=== PATIENT | female | born 1980 | race Caucasian/White ===

== ENCOUNTER 2020-03-06 14:21 | Emergency (ER) | payer MEDICAID, SELFPAY ==
[2020-03-06 14:29] VITALS: BMI 27.2
[2020-03-06 14:33] VITALS: BP 139/80; PULSE 74; RESP 16; TEMP 36.3; O2SAT 99
--- NOTE | 2020-03-06 15:12 | ED_ITS ---
HPI - Nausea/Vomiting/Diarrhea General: Chief complaint: Nausea/Vomiting/Diarrhea Stated complaint: subutex withrdawal Time Seen by Provider: 03/06/20 15:12 Source: patient Mode of arrival: ambulatory Limitations: no limitations History of Present Illness: HPI Narrative: Patient comes in today for complaints of withdrawal symptoms due to being out of her Subutex for 3 days. Patient appears well. Patient appears in no pain. Patient reports also been without her clonazepam. Patient has been using Phenergan as needed for nausea and vomiting. Associated nausea: Yes Associated symtoms: Reports nausea Review of Systems General: Reports: 10 or more systems reviewed and unremarkable except in HPI and below GI: Reports: nausea and vomiting FORMERLY [facility], [facility]–1983 ED PFSH: Social History (Updated 03/06/20 @ 13:45 by Edith Lawrence LPN) Smoking and tobacco status: current every day smoker Alcohol intake: never Physical Exam Const: COMMON NORMALS: no acute distress and patient oriented x3 GENERAL APPEARANCE: cooperative HENMT: COMMON NORMALS: normocephalic and Normal external nose present HEAD & SCALP: normal to inspection and normocephalic NOSE: Normal external nose present Eye: GENERAL EYE: appearance normal, both eyes and all related structures Neck/C-Spine: COMMON NORMALS: full ROM Chest: COMMONS NORMALS: normal inspection of the chest Resp: COMMON NORMALS: normal respiratory effort EFFORT & INSPECTION: Yes able to speak in complete sentences Cardio: COMMON NORMALS: regular rate and regular rhythm RATE: regular rate RHYTHM: regular rhythm GI: COMMON NORMALS: non-tender : COMMON NORMALS: Yes no CVA tenderness BLADDER/KIDNEY EXAM: Yes no CVA tenderness Back/Pelvis: COMMON NORMALS: no CVA tenderness and thoracic and lumbar spine normal to inspection Extremity: COMMON NORMALS: normal to inspection Neuro: COMMON NORMALS: patient oriented x3 and moves all extremities Psych: COMMON NORMALS: mental status grossly normal and cooperative Skin: COMMON NORMALS: no rashes or lesions noted GENERAL SKIN EXAM: no rashes or lesions noted Course Vital Signs: Vital signs: Vital Signs Temperature 97.4 F L 03/06/20 14:33 Pulse Rate 74 03/06/20 14:33 Respiratory Rate 16 03/06/20 14:33 Blood Pressure 116/76 03/06/20 15:26 Pulse Oximetry 99 03/06/20 14:33 MDM - Nausea/Vomiting/Diarrhea MDM Narrative: Medical decision making narrative: Patient came into the ER today due to being without her medications for narcotic abuse. Patient appears well. Patient appears in no acute distress. Differential diagnosis includes but not limited to substance abuse, malingering, narcotic withdrawal, drug- seeking behavior. Patient was given a dose of Phenergan IM and a dose of clonidine. Patient was recommended to continue with the clonidine for withdrawal symptoms. Patient was recommended to talk with [facility] for other providers that may be assisted in her narcotic abuse program. Discharge Plan Discharge Patient Disposition: Home, Self-Care Clinical Impression: Drug withdrawal Qualifiers: Substance type: opioid Qualified Code(s): F11.23 - Opioid dependence with withdrawal Vomiting Qualifiers: Vomiting type: unspecified Vomiting Intractability: non-intractable Nausea presence: with nausea Qualified Code(s): R11.2 - Nausea with vomiting, unspecified Condition: Stable Prescriptions: New ondansetron HCl 4 mg tablet 4 mg PO Q8H PRN (Reason: nausea and vomiting) Qty: 10 RF: 0 clonidine HCl 0.1 mg tablet 0.1 mg PO TID Qty: 30 RF: 0 No Action Klonopin 0.5 mg Tablet 0.5 mg PO Q8H PRN (Reason: unknown) RF: 0 promethazine 25 mg Tablet 25 mg PO PRN RF: 0 buprenorphine HCl 8 mg Tablet, Sublingual 12 mg SUBLINGUAL DAILY RF: 0 Discharge Orders: Discharge Order (Routine); Ordered 03/06/20 Ordered By: Arturo Rodríguez Discharge Diet: Advance as tolerated Discharge Activity: Resume usual activity Patient Instructions: Opioid Withdrawal (ED) Activity Restrictions/Additional Instructions: Drink plenty of water. Use medications as directed only. Follow-up with primary care for further treatment. You may need to contact [facility], an area rehab center, for further treatment programs that may be of assistance with locating a provider for your Subutex. Return to the ER for high fever or new concerns. Coding Level of Care Code ED Obstetrics Technician for Aba Raman Exam Comprehensive
[2020-03-06 15:26] VITALS: BP 116/76
[2020-03-06] MEDS: cloNIDine 0.1 mg Tablet PO (15:26)
[2020-03-06] MEDS: promethazine 25 mg/mL SDV 1 mL IM (15:36)
== END 2020-03-06 16:00 | disposition home or self-care (01) ==
PROVIDERS: Emergency Provider Nurse Practitioner Family
DX: F11.23 Opioid dependence with withdrawal (principal); R11.2 Nausea with vomiting, unspecified; F17.210 Nicotine dependence, cigarettes, uncomplicated
CPT/HCPCS: 12345; 96372; 99282; 99283; J2550

== ENCOUNTER 2020-03-18 02:25 | Inpatient (IN) | payer OTHER, SELFPAY ==
[2020-03-18] VITALS (84 sets, daily range): BP systolic 89–141; BP diastolic 62–95; PULSE 63–135; RESP 10–27; TEMP 36.5–36.9; O2SAT 93–100; BMI 26.6
--- NOTE | 2020-03-18 02:33 | XR_ITS ---
WS: [id number] XR chest 1V portable [id number] REASON FOR EXAM: ams FINDINGS: Interstitial reaction is noted in both lung veloz suggesting early pulmonary edema. The heart is not enlarged. There is no pneumonia pleural effusion are pneumothorax. There is excessive gas in the intestinal tract a pattern is not noted. XR/XR chest 1V portable [id number] IMPRESSION: Interstitial reaction both lung veloz suggesting early pulmonary edema.
--- NOTE | 2020-03-18 02:33 | CTR_ITS ---
PROCEDURE INFORMATION: Exam: CT Head Without Contrast Exam date and time: 03/18/2020 2:36 AM Age: 40 years old Clinical indication: Injury or trauma; Injury history: Found unconscious/possible overdose; Initial encounter; Additional info: AMS TECHNIQUE: Imaging protocol: Computed tomography of the head without contrast. Radiation optimization: All CT scans at this facility use at least one of these dose optimization techniques: automated exposure control; mA and/or kV adjustment per patient size (includes targeted exams where dose is matched to clinical indication); or iterative reconstruction. COMPARISON: No relevant prior studies available. RADIATION DOSE METRICS: Total DLP: 899.21 mGy-cm FINDINGS: Brain: No acute intracranial hemorrhage or mass effect. No definite acute infarct by CT. MRI could be more sensitive/specific for detection, as clinically directed. Ventricles: Ventricle size is normal for age. Bones/joints: No definite acute skull fracture. Sinuses: Moderate mucosal thickening/fluid in the right maxillary sinus. Mild ethmoid sinus opacity. Minimal mucosal thickening/fluid in the sphenoid sinus. Mastoid air cells: No significant acute finding. CT/CT head wo con* [id number] IMPRESSION: 1. No acute intracranial hemorrhage or mass effect. 2. No definite acute infarct by CT, see above. 3. Other findings discussed above. 4. Some limitations due to artifact from patient motion. Radiation Dose CTDIVOL = (mGy): DLP = 899.21 (mGy-cm)
--- NOTE | 2020-03-18 02:33 | ECG_ITS ---
Measurements Intervals [place] Rate: 81 P: 66 MS: 157 QRS: 67 QRSD: 102 T: 39 QT: 413 QTc: 480 SINUS RHYTHM WITH SINUS ARRHYTHMIA INCOMPLETE RIGHT BUNDLE BRANCH BLOCK [90+ ms QRS DURATION, TERMINAL R IN V1/V2, 40 40+ ms S IN I/aVL/V4/V5/V6] No previous ECG available for comparison Electronically Signed On 03-18-2020 20:29:25 CDT by Dani Ba M.D. [email or web address]
--- NOTE | 2020-03-18 02:36 | W.ED.AMS ---
HPI - Altered Mental Status General: Chief Complaint: Altered Mental Status Stated Complaint: unresponsive Time Seen by Provider: 03/18/20 02:33 History of Present Illness: HPI narrative: 40-year-old female presents obtunded, presumably following an ingestion. Her found her leaned up against a wall. She had told him to take care of the kids , so he is assuming that she overdosed on something. She is not answering questions, except to answer simple questions such as nothing hurts, and that I do not do drugs . Her blood sugar was 136 in the field. She did not respond to Narcan. complaint: altered mental status and decreased responsiveness Onset (ago): minute(s) Timing confirmed by: spouse Severity: severe Associated symptoms: Reports other (Unknown intent) Review of Systems General: Reports: ROS unobtainable due to mental status PFS ED PFSH: Medical History (Updated 03/18/20 @ 04:22 by Jeannette Goldstein MD) Depression Hypertension Insomnia Opioid dependence PTSD (post-traumatic stress disorder) Surgical History (Updated 03/18/20 @ 04:22 by Jeannette Goldstein MD) History of hysterectomy Social History (Updated 03/18/20 @ 04:22 by Jeannette Goldstein MD) Smoking and tobacco status: current every day smoker Alcohol intake: never Physical Exam Const: GENERAL APPEARANCE: well kempt and odor of alcohol detected ORIENTATION/CONSCIOUSNESS: Yes oriented to person; not oriented to place and not oriented to time HENMT: COMMON NORMALS: normocephalic, external ears normal and Normal external nose present HEAD & SCALP: normocephalic FACE & SINUS: normal facial exam NOSE: Normal external nose present and No nasal discharge present EXTERNAL EAR: Yes external ears normal MOUTH: tongue normal Eye: COMMON NORMALS: Equal, round and reactive pupils present (Pupils small but reactive), EOMs intact bilaterally and conjunctivae normal EYELID: eyelids normal CONJUNCTIVA: Yes conjunctivae normal PUPIL: Yes Equal, round and reactive pupils present (Pupils small but reactive) Neck/C-Spine: GENERAL: No tracheal deviation Chest: COMMONS NORMALS: normal inspection of the chest CHEST: No tenderness Resp: COMMON NORMALS: clear to auscultation bilaterally EFFORT & INSPECTION: No tachypneic, No respiratory distress, No retractions, No uses accessory muscles and No tracheal deviation AUSCULTATION: clear to auscultation bilaterally, no rhonchi, no wheezes and lung sounds not diminished Cardio: COMMON NORMALS: regular rate and regular rhythm RATE: regular rate RHYTHM: regular rhythm HEART SOUNDS: no murmurs PERIPHERAL PULSES: radial pulses present GI: INSPECTION: No abdominal distension AUSCULTATION: No Hyperactive bowel sounds present and No Hypoactive bowel sounds present PALPATION: No Guarding due to palpation present (GI) and No Rigid due to palpation PERCUSSION: no dullness to percussion and no tympanic to percussion Neuro: AMY COMA SCALE: document GCS findings Avis coma scale eye opening: To pressure Avis coma scale verbal response: Confused Avis coma scale motor response: Localising Amy coma scale total score: 11 SENSORIUM/ORIENTATION: Yes oriented to person, No oriented to place and No oriented to time Psych: APPEARANCE: Yes well kempt ATTITUDE: Yes calm SPEECH: Yes minimal and Yes slurred ATTENTION/CONCENTRATION: Yes attention grossly impaired Skin: COMMON NORMALS: no rashes or lesions noted GENERAL SKIN EXAM: no rashes or lesions noted Course Consultations: Consultation #1: ismael Vital Signs: Vital signs: Vital Signs Temperature 97.9 F 03/18/20 02:26 Pulse Rate 77 03/18/20 03:02 Respiratory Rate 14 03/18/20 03:02 Blood Pressure 124/94 03/18/20 03:02 Pulse Oximetry 93 03/18/20 03:02 MDM - Altered Mental Status MDM Narrative: Medical decision making narrative: 40-year-old female, presents obtunded. She does respond to noxious stimuli, as well as strong verbal stimuli. She vocalizes and answers simple questions somewhat appropriately. Her GCS is 10/11. Her laboratory is benign. Her head CT is negative. Cervical spine is cleared radiographically. Her chest x-ray is negative. Her vitals are good. Blood pressure 120/71, sinus at 76, room air saturation is 99%. This is likely an intentional overdose of unknown substances, most likely benzodiazepines given her prescribed medication. Narcan did not resolve her obtundation in the field. The patient is prescribed Suboxone, which would take very large doses to reverse of Narcan. Romazicon could be considered, but if the patient takes medication chronically, she could seize. She will be observed in the ICU. Lab Data: Labs: Lab Results 03/18/20 03/18/20 03/18/20 Range/Units 02:37 02:37 02:37 WBC 7.0 (4.0-10.0) 10^3/ uL RBC 4.61 (4.1-5.3) 10^6/u L Hgb 12.4 (11.5-15.3) g/dL Hct 39.4 (37.0-47.0) % MCV 85.5 (81-99) fL MCH 26.9 L (28.0-34.0) pg MCHC 31.5 (30.0-36.0) g/dL RDW 13.4 (12.1-15.1) % Plt Count 309 (130-400) 10^3/c mm MPV 9.3 (7.4-10.4) fL Neut % (Auto) 88.9 % Lymph % (Auto) 9.0 % Frontier % (Auto) 1.4 % Eos % (Auto) 0.0 % Baso % (Auto) 0.4 % Neut # (Auto) 6.2 (1.8-7.7) 10^3/u L Lymph # (Auto) 0.6 L (0.8-4.8) 10^3/u L Frontier # (Auto) 0.1 L (0.2-0.9) 10^3/u L Eos # (Auto) 0.0 (0.0-0.8) 10^3/u L Baso # (Auto) 0.0 (0.0-0.1) 10^3/u L Nucleated RBC % (a uto) 0 % Nucleated RBCs # 0.0 /100WBC PT 13.90 H (10.5-13.3) SECO NDS INR 1.04 (0.8-1.2) Specimen Type Sample Site ABG pH (7.35-7.45) ABG pCO2 (35-45) mmHg ABG pO2 (80.0-100.0) mmH g ABG HCO3 (22-26) mmol/L ABG Base Excess (-2.0-2.0) mmol/ L Claudio Test Hematocrit (37-47) % O2 Delivery Device Deputy Commonwealth'S Attorney ID Sodium 136 (136-145) mmol/L Potassium 3.7 (3.5-5.1) mmol/L Chloride 98 (98-107) mmol/L Carbon Dioxide 24 (22-29) mmol/L Anion Gap 17.7 (5-19) BUN 10 (6-20) mg/dL Creatinine 0.8 (0.5-0.9) mg/dL GFR Calculation 79.0 L (90-130) mL/min Glucose 132 H (65-115) mg/dL Calculated Osmolal ity 280 L (285-295) mOsm/k g Calcium 9.4 (8.5-10.5) mg/dL Total Bilirubin 0.4 (0.15-1.2) mg/dL AST 33 H (0-32) U/L ALT 43 H (0-33) U/L Alkaline Phosphata se 66 (35-105) IU/L Ammonia (11-51) umol/L Creatine Kinase 546 H* (26-192) U/L Total Protein 7.5 (6.6-8.7) g/dL Albumin 4.6 (3.5-5.2) g/dL Globulin 2.9 (1.3-4.6) g/dL HCG, Qual (Negative) Salicylates 0.5 L (3-10) mg/dL Acetaminophen < 5.0 L (10-30) ug/mL Ethyl Alcohol < 10 (0-10) mg/dL 03/18/20 03/18/20 03/18/20 Range/Units 02:37 02:37 02:55 WBC (4.0-10.0) 10^3/ uL RBC (4.1-5.3) 10^6/u L Hgb (11.5-15.3) g/dL Hct (37.0-47.0) % MCV (81-99) fL MCH (28.0-34.0) pg MCHC (30.0-36.0) g/dL RDW (12.1-15.1) % Plt Count (130-400) 10^3/c mm MPV (7.4-10.4) fL Neut % (Auto) % Lymph % (Auto) % Frontier % (Auto) % Eos % (Auto) % Baso % (Auto) % Neut # (Auto) (1.8-7.7) 10^3/u L Lymph # (Auto) (0.8-4.8) 10^3/u L Frontier # (Auto) (0.2-0.9) 10^3/u L Eos # (Auto) (0.0-0.8) 10^3/u L Baso # (Auto) (0.0-0.1) 10^3/u L Nucleated RBC % (a uto) % Nucleated RBCs # /100WBC PT (10.5-13.3) SECO NDS INR (0.8-1.2) Specimen Type Arterial Sample Site Radial, right ABG pH 7.33 L (7.35-7.45) ABG pCO2 42.4 (35-45) mmHg ABG pO2 60.7 L (80.0-100.0) mmH g ABG HCO3 22.5 (22-26) mmol/L ABG Base Excess -3.3 L (-2.0-2.0) mmol/ L Claudio Test Pos Hematocrit 37.1 (37-47) % O2 Delivery Device None Deputy Commonwealth'S Attorney ID ellpe Sodium (136-145) mmol/L Potassium (3.5-5.1) mmol/L Chloride (98-107) mmol/L Carbon Dioxide (22-29) mmol/L Anion Gap (5-19) BUN (6-20) mg/dL Creatinine (0.5-0.9) mg/dL GFR Calculation (90-130) mL/min Glucose (65-115) mg/dL Calculated Osmolal ity (285-295) mOsm/k g Calcium (8.5-10.5) mg/dL Total Bilirubin (0.15-1.2) mg/dL AST (0-32) U/L ALT (0-33) U/L Alkaline Phosphata se (35-105) IU/L Ammonia 10 L (11-51) umol/L Creatine Kinase (26-192) U/L Total Protein (6.6-8.7) g/dL Albumin (3.5-5.2) g/dL Globulin (1.3-4.6) g/dL HCG, Qual Negative (Negative) Salicylates (3-10) mg/dL Acetaminophen (10-30) ug/mL Ethyl Alcohol (0-10) mg/dL Discharge Plan Discharge Prescriptions: No Action Klonopin 0.5 mg Tablet 0.5 mg PO Q8H PRN (Reason: unknown) RF: 0 promethazine 25 mg Tablet 25 mg PO PRN RF: 0 buprenorphine HCl 8 mg Tablet, Sublingual 12 mg SUBLINGUAL DAILY RF: 0 ondansetron HCl 4 mg tablet 4 mg PO Q8H PRN (Reason: nausea and vomiting) Qty: 10 RF: 0 clonidine HCl 0.1 mg tablet 0.1 mg PO TID Qty: 30 RF: 0 Coding Level of Care Code ED Staff Writer for Chg Fwd Exam Comprehensive
--- NOTE | 2020-03-18 02:40 | CTR_ITS ---
PROCEDURE INFORMATION: Exam: CT Cervical Spine Without Contrast Exam date and time: 03/18/2020 2:42 AM Age: 40 years old Clinical indication: Injury or trauma; Injury history: Found unconscious/possible overdose; Initial encounter; Additional info: AMS TECHNIQUE: Imaging protocol: Computed tomography images of the cervical spine without contrast. Radiation optimization: All CT scans at this facility use at least one of these dose optimization techniques: automated exposure control; mA and/or kV adjustment per patient size (includes targeted exams where dose is matched to clinical indication); or iterative reconstruction. COMPARISON: No relevant prior studies available. RADIATION DOSE METRICS: Total DLP: 799.9 mGy-cm FINDINGS: Vertebrae: On axial CT images, no definite acute fracture is visible. Sagittal and coronal reconstructions show no fracture or subluxation. Mild to moderate degenerative disc changes and facet joint arthritis at several levels. Discs/Spinal canal/Neural foramina: Moderate bulging/protruding disc at C5-C6, more prominent to the left of the midline. MRI could be more specific/sensitive if clinically indicated. Lungs: No significant acute abnormality in the upper lungs. CT/CT cervical spin wo con* [id number] IMPRESSION: 1. No definite acute fracture or subluxation by CT. 2. Other findings discussed above. Radiation Dose CTDIVOL = (mGy): DLP = 799.9 (mGy-cm)
[2020-03-18 02:43] LABS: Basophils % 0.4 %; Hematocrit 39.4 % (37.0-47.0); Hemoglobin 12.4 g/dL (11.5-15.3); Lymphocytes # 0.6 10^3/uL (0.8-4.8); Mean Corpuscular HGB Conc 31.5 g/dL (30.0-36.0); Mean Corpuscular Hemoglobin 26.9 pg (28.0-34.0); Mean Corpuscular Volume 85.5 fL (81-99); Mean Platelet Volume 9.3 fL (7.4-10.4); Monocytes # 0.1 10^3/uL (0.2-0.9); Monocytes % 1.4 %; Neutrophils # 6.2 10^3/uL (1.8-7.7); Neutrophils % 88.9 %; Nucleated Red Blood Cells % 0 %; Platelet Count 309 10^3/cmm (130-400); Red Blood Count 4.61 10^6/uL (4.1-5.3); Red Cell Distribution Width 13.4 % (12.1-15.1)
[2020-03-18] MEDS: sodium chloride 0.9% 1,000 ML 999 ML IV (02:45)
[2020-03-18 02:53] LABS: INR 1.04 (0.8-1.2)
--- NOTE | 2020-03-18 02:58 | PC.NURSE ---
Received patient to Er via EMS with complaint of unreponsive at home. Patient was found at the bottom of stairs by her spouse. Patient has a 20g sl Lac per ems and received 0.4 nacan in ambulance with slight improvement to her resp. Patient is lethargic but arrouse to painful stimuli. Patient able to maintain her airway with good sats. Placed on monitor, pulseox and lab draw obtained. in room.
[2020-03-18 03:00] LABS: Ammonia 10 umol/L (11-51)
[2020-03-18 03:01] LABS: Alanine Aminotransferase 43 U/L (0-33); Albumin Level 4.6 g/dL (3.5-5.2); Alkaline Phosphatase 66 IU/L (35-105); Anion Gap 17.7 (5-19); Aspartate Amino Transferase 33 U/L (0-32); Blood Urea Nitrogen 10 mg/dL (6-20); Calcium 9.4 mg/dL (8.5-10.5); Carbon Dioxide 24 mmol/L (22-29); Chloride 98 mmol/L (98-107); Globulin 2.9 g/dL (1.3-4.6); Glucose 132 mg/dL (65-115); Osmolality Calculated 280 mOsm/kg (285-295); Potassium 3.7 mmol/L (3.5-5.1); Salicylate 0.5 mg/dL (3-10); Sodium 136 mmol/L (136-145); Total Bilirubin 0.4 mg/dL (0.15-1.2); Total Protein 7.5 g/dL (6.6-8.7)
[2020-03-18 03:03] LABS: HCG, Serum Qual Negative (Negative)
[2020-03-18 03:04] LABS: ABG PCO2 42.4 mmHg (35-45); ABG PH Result 7.33 (7.35-7.45); Arterial Blood Gas Hematocrit 37.1 % (37-47); Base Excess ABG -3.3 mmol/L (-2.0-2.0); Blood Gas Allen Test Pos; Blood Gas Sample Site Radial, right; Blood Gas Sample Type Arterial; HCO3 ABG 22.5 mmol/L (22-26); PO2 ABG 60.7 mmHg (80.0-100.0)
[2020-03-18 03:05] LABS: Acetaminophen < 5.0 ug/mL (10-30); Alcohol Level < 10 mg/dL (0-10); Creatine Phosphokinase 546 U/L (26-192)
--- NOTE | 2020-03-18 03:26 | PC.NURSE ---
Patient back from xray.
--- NOTE | 2020-03-18 04:16 | PM.HP ---
Providers/Chief Complaint Chief Complaint: overdose/ unresponsive History of Present Illness Alireza Adams is a 40 year old female who was sent by her fianc? today after he found her leaning against the wall unresponsive, before this incident she asked him to take care of her children. They had an argument today that led to this incident. On arrival to the ER GCS 11 normal hemodynamics, QTc 480, normal CBC, BMP blood glucose, mild respiratory acidosis. I have tried to access previous records, there is not much information about her. There is no next of kin available. I checked with the ER who did not note fianc?'s number. Unfortunately I do not have much information on this patient. She has been given Narcan in the ER without much improvement in her mentation, on my evaluation her GCS is 8, she is able to localize painful stimuli, make grunting sound but she is not opening her eyes, I have asked ER physician to give Narcan 1 more time and see if that would improve her GCS otherwise we will have to think about intubation before sending her to the ICU. Her drug screen is pending. Her home medications include Subutex, clonazepam, clonidine and promethazine. My suspicion is high if she took clonazepam to sedate herself. Review of Systems General: Reports: ROS unobtainable due to mental status (Obtunded GCS 8) Medications/Allergies Home Medications Medication Instructions Recorded Confirmed Last Taken Type buprenorphine HCl 12 mg SUBLINGUAL DAILY 03/06/20 03/06/20 Unknown History clonazepam [Klonopin] 0.5 mg PO Q8H PRN 03/06/20 03/06/20 Unknown History clonidine HCl 0.1 mg PO TID #30 tab 03/06/20 Unknown Rx ondansetron HCl 4 mg PO Q8H PRN #10 tab 03/06/20 Unknown Rx promethazine 25 mg PO PRN 03/06/20 03/06/20 03/06/20 History Allergies Allergy/AdvReac Type Severity Reaction Status Date / Time No Known Allergies Allergy Verified 03/06/20 14:37 PFSH Acute PFSH: Medical History Depression Hypertension Insomnia Opioid dependence PTSD (post-traumatic stress disorder) Surgical History History of hysterectomy Family History (Updated 03/18/20 @ 04:53 by Jeanntete Goldstein MD) Denies family history of Hypertension Social History (Updated 03/18/20 @ 04:53 by Jeannette Goldstein MD) Smoking and tobacco status: current every day smoker Alcohol intake: never Household members: significant other Housing: House Vitals/I&O/Wt Last Vital Signs Temp 97.9 F 03/18/20 02:26 Pulse 77 03/18/20 03:02 Resp 14 03/18/20 03:02 BP 124/94 03/18/20 03:02 Pulse Ox 93 03/18/20 03:02 Weight last 48 hrs Weight 77.111 kg Physical Exam Narrative: EXAM NARRATIVE: Head to toe examination Well-built female GCS 8 No visible trauma S1, S2 no tachycardia heart failure Abdomen soft nontender nondistended Lower extremity no signs of edema gangrene ulcer Bilateral breath sounds without any adventitious sounds She has mild tongue fasciculations that we could notice Currently saturating well on room Neurological status: Drowsy, GCS 8, moving her arms and legs on painful stimuli, she makes grunting sounds on sternal rub, Data : 03/18/20 02:37 03/18/20 02:37 A&P Assessment and plan (1) Altered mental status: Status: Acute (2) Overdose: Status: Acute Additional A&P Information Encephalopathy due to drug overdose noted tongue fasciculations with mildly high CPK which could be due to Phenergan overdose Her home medication also includes clonazepam, her respiratory rate is between 14-16, I do not see any respiratory depression however there is mild respiratory acidosis on the blood gas, I am repeating blood gas in the ER QTC around 488 GCS 8 Giving Narcan trial in the ER if her mentation is not improving, will intubate in the ER before her transfer to the ICU to protect her airways I would avoid giving her flumazenil to avoid risk of seizures seem like she has been taking clonazepam for quite some time Currently normal hemodynamics without acute abnormalities on blood work Mild transaminitis with CPK N.p.o., D5 half-normal saline maintenance fluid rate Start thiamine folic acid Drug screen is pending She will need psych consult and 96-hour hold She lives with her significant other, her fianc?'s number was not noted down when he called the ER. Unfortunately I am not able to get much information on her. She went to urgent care on 03/06 for nausea and vomiting: At that point she stated that she ran out of subutex, she complained about insomnia, akathisia, she was asked to just take Phenergan and increase her fluid intake Attestations Medical Necessity Statement*: Anticipating stay in the hospital cross more than 2 midnights currently need evaluation in ICU for altered mental status due to drug overdose Time Spent in Patient Care: (>than 50% of time spent in counselling and/or direct pt care on unit). 50 Coding Level of Care Code Acute Lead Performance Support Analyst for [employer] Fwd Diagnoses Altered mental status R41.82 Overdose T50.901A
[2020-03-18] MEDS: sodium chloride 0.9% 1,000 ML 150 ML IV (04:47)
[2020-03-18] MEDS: naloxone 0.4 mg/ml SDV 2 MG IVP (04:50)
[2020-03-18 05:16] LABS: ABG PCO2 43.3 mmHg (35-45); ABG PH Result 7.33 (7.35-7.45); Arterial Blood Gas Hematocrit 39.3 % (37-47); Blood Gas Allen Test Pos; Blood Gas Sample Site Radial, right; Blood Gas Sample Type Arterial; HCO3 ABG 22.9 mmol/L (22-26); PO2 ABG 67.3 mmHg (80.0-100.0)
[2020-03-18] MEDS: dextrose 5%-sod chloride 0.45% 1,000 ML 30 ML IV (06:25)
[2020-03-18] MEDS: enoxaparin 40 mg/0.4 mL Syringe SUBCUT (06:31)
[2020-03-18 06:39] LABS: Add Urine Microscopic? NO
[2020-03-18 06:42] LABS: Bilirubin Urine Neg (NEGATIVE); Blood Urine Neg (Negative); Glucose Urine UA Norm (Normal); Ketones Urine 1+ (Negative); Leukocyte Esterase Urine Negative (Negative); Nitrate Urine Negative (Negative); Protein Urine Neg (Negative); Specific Gravity, Urine 1.015 (1.005-1.030); Urine Appearance Clear (CLEAR); Urine Color Yellow (Yellow); Urobilinogen Urine Norm (Negative)
[2020-03-18 06:44] LABS: Magnesium 2.2 mg/dL (1.7-2.3); Thyroid Stimulating Hormone 0.78 uIU/mL (0.27-4.20)
[2020-03-18 06:51] LABS: Amphetamines Screen Urine Positive (Negative); Barbiturates Screen Urine Negative (Negative); Benzodiazepines Screen Urine Negative (Negative); Cocaine Screen Urine Negative (Negative); Opiate Screen Urine Negative (Negative); PCP Screen Urine Negative (Negative); THC Screen Urine Negative (Negative)
--- NOTE | 2020-03-18 07:43 | PC.NURSE ---
Assessment Patient sleeping during assessment, responds to painful stimuli, withdrawals all extremities, pupils equal and reactive. Vitals within normal limits, lung sounds course (snoring). Will continue to assess patient.
--- NOTE | 2020-03-18 09:22 | PC.RESP ---
Smoking Cessation packet with a schedule of classes sent to patient.
--- NOTE | 2020-03-18 12:30 | PM.DCS ---
Discharge Providers Date of Admission: 03/18/20 06:14 Date of Discharge: March 18, 2020 Attending Provider at Admission: Jeannette Goldstein MD Attending Provider at Discharge: Helen Dent MD Diagnoses at Discharge Discharge Diagnosis (1) Altered mental status: Status: Acute Problem details: -UDS positive for amphetamines -able to protect her airway, has been on RA -VSS -labs unremarkable -imaging unremarkable (2) Overdose: Status: Acute Reason for Visit Reason for Visit: overdose/ unresponsive Hospital Course Hospital Course: Patient was admitted earlier this morning secondary to suspected drug overdose with noted acute encephalopathy. Due to need for close monitoring she was admitted to ICU, minimal history available due to patient's initial altered mental status and no collateral information obtained from family. Upon awakening this morning she decided to leave AGAINST MEDICAL ADVICE prior to formal evaluation by this provider. Physical Exam Narrative: EXAM NARRATIVE: -Patient left AMA before being seen by provider Discharge Data Data Completed and Pending: Completed Studies During Hospitalization Category Date Time Status CT cervical spin wo con* 11588 Urge nt Cat Scan 03/18/20 02:[address] head wo con* 7 0450 Urgent Cat Scan 03/18/20 02:33 Completed XR chest 1V mandy ble 32502 Urgent Exams 03/18/20 02:33 Completed Pending at discharge Category Date Time Status Basic Metabolic P silke AM LABS Lab 03/19/20 04:00 Ordered Complete Blood Co unt w/Auto AM LABS Lab 03/19/20 04:00 Ordered Comprehensive Met abolic Panel AM LA BS Lab 03/19/20 04:00 Ordered Labs from last 24 hours 03/18/20 03/18/20 03/18/20 06:30 06:30 04:58 WBC RBC Hgb Hct MCV MCH MCHC RDW Plt Count MPV Neut % (Auto) Lymph % (Auto) [place] % (Auto) Eos % (Auto) Baso % (Auto) Neut # (Auto) Lymph # (Auto) [place] # (Auto) Eos # (Auto) Baso # (Auto) Nucleated RBC % (a uto) Nucleated RBCs # PT INR Specimen Type Arterial Sample Site Radial, right ABG pH 7.33 L ABG pCO2 43.3 ABG pO2 67.3 L ABG HCO3 22.9 ABG Base Excess -3.0 L Claudio Test Pos Hematocrit 39.3 O2 Delivery Device None Sales Coach ID ellpe Sodium Potassium Chloride Carbon Dioxide Anion Gap BUN Creatinine GFR Calculation Glucose Calculated Osmolal ity Calcium Magnesium Total Bilirubin AST ALT Alkaline Phosphata se Ammonia Creatine Kinase Total Protein Albumin Globulin TSH HCG, Qual Urine Color Yellow Urine Appearance Clear Urine pH 5.0 Ur Specific Gravit y 1.015 Urine Protein Neg Urine Glucose (UA) Norm Urine Ketones 1+ H Urine Blood Neg Urine Nitrate Negative Urine Bilirubin Neg Urine Urobilinogen Norm Ur Leukocyte Deidra ase Negative Salicylates Urine Opiates Scre en Negative Acetaminophen Ur Barbiturates Sc reen Negative Ur Phencyclidine S crn Negative Ur Amphetamines Sc reen Positive H U Benzodiazepines Scrn Negative Urine Cocaine Scre en Negative U Marijuana (THC) Screen Negative Ethyl Alcohol 03/18/20 03/18/20 03/18/20 02:55 02:37 02:37 WBC RBC Hgb Hct MCV MCH MCHC RDW Plt Count MPV Neut % (Auto) Lymph % (Auto) [place] % (Auto) Eos % (Auto) Baso % (Auto) Neut # (Auto) Lymph # (Auto) [place] # (Auto) Eos # (Auto) Baso # (Auto) Nucleated RBC % (a uto) Nucleated RBCs # PT INR Specimen Type Arterial Sample Site Radial, right ABG pH 7.33 L ABG pCO2 42.4 ABG pO2 60.7 L ABG HCO3 22.5 ABG Base Excess -3.3 L Claudio Test Pos Hematocrit 37.1 O2 Delivery Device None Sales Coach ID ellpe Sodium Potassium Chloride Carbon Dioxide Anion Gap BUN Creatinine GFR Calculation Glucose Calculated Osmolal ity Calcium Magnesium 2.2 Total Bilirubin AST ALT Alkaline Phosphata se Ammonia Creatine Kinase Total Protein Albumin Globulin TSH 0.78 HCG, Qual Negative Urine Color Urine Appearance Urine pH Ur Specific Gravit y Urine Protein Urine Glucose (UA) Urine Ketones Urine Blood Urine Nitrate Urine Bilirubin Urine Urobilinogen Ur Leukocyte Deidra ase Salicylates Urine Opiates Scre en Acetaminophen Ur Barbiturates Sc reen Ur Phencyclidine S crn Ur Amphetamines Sc reen U Benzodiazepines Scrn Urine Cocaine Scre en U Marijuana (THC) Screen Ethyl Alcohol 03/18/20 03/18/20 03/18/20 02:37 02:37 02:37 WBC RBC Hgb Hct MCV MCH MCHC RDW Plt Count MPV Neut % (Auto) Lymph % (Auto) [place] % (Auto) Eos % (Auto) Baso % (Auto) Neut # (Auto) Lymph # (Auto) [place] # (Auto) Eos # (Auto) Baso # (Auto) Nucleated RBC % (a uto) Nucleated RBCs # PT 13.90 H INR 1.04 Specimen Type Sample Site ABG pH ABG pCO2 ABG pO2 ABG HCO3 ABG Base Excess Claudio Test Hematocrit O2 Delivery Device Sales Coach ID Sodium 136 Potassium 3.7 Chloride 98 Carbon Dioxide 24 Anion Gap 17.7 BUN 10 Creatinine 0.8 GFR Calculation 79.0 L Glucose 132 H Calculated Osmolal ity 280 L Calcium 9.4 Magnesium Total Bilirubin 0.4 AST 33 H ALT 43 H Alkaline Phosphata se 66 Ammonia 10 L Creatine Kinase 546 H* Total Protein 7.5 Albumin 4.6 Globulin 2.9 TSH HCG, Qual Urine Color Urine Appearance Urine pH Ur Specific Gravit y Urine Protein Urine Glucose (UA) Urine Ketones Urine Blood Urine Nitrate Urine Bilirubin Urine Urobilinogen Ur Leukocyte Deidra ase Salicylates 0.5 L Urine Opiates Scre en Acetaminophen < 5.0 L Ur Barbiturates Sc reen Ur Phencyclidine S crn Ur Amphetamines Sc reen U Benzodiazepines Scrn Urine Cocaine Scre en U Marijuana (THC) Screen Ethyl Alcohol < 10 03/18/20 02:37 WBC 7.0 RBC 4.61 Hgb 12.4 Hct 39.4 MCV 85.5 MCH 26.9 L MCHC 31.5 RDW 13.4 Plt Count 309 MPV 9.3 Neut % (Auto) 88.9 Lymph % (Auto) 9.0 [place] % (Auto) 1.4 Eos % (Auto) 0.0 Baso % (Auto) 0.4 Neut # (Auto) 6.2 Lymph # (Auto) 0.6 L [place] # (Auto) 0.1 L Eos # (Auto) 0.0 Baso # (Auto) 0.0 Nucleated RBC % (a uto) 0 Nucleated RBCs # 0.0 PT INR Specimen Type Sample Site ABG pH ABG pCO2 ABG pO2 ABG HCO3 ABG Base Excess Claudio Test Hematocrit O2 Delivery Device Sales Coach ID Sodium Potassium Chloride Carbon Dioxide Anion Gap BUN Creatinine GFR Calculation Glucose Calculated Osmolal ity Calcium Magnesium Total Bilirubin AST ALT Alkaline Phosphata se Ammonia Creatine Kinase Total Protein Albumin Globulin TSH HCG, Qual Urine Color Urine Appearance Urine pH Ur Specific Gravit y Urine Protein Urine Glucose (UA) Urine Ketones Urine Blood Urine Nitrate Urine Bilirubin Urine Urobilinogen Ur Leukocyte Deidra ase Salicylates Urine Opiates Scre en Acetaminophen Ur Barbiturates Sc reen Ur Phencyclidine S crn Ur Amphetamines Sc reen U Benzodiazepines Scrn Urine Cocaine Scre en U Marijuana (THC) Screen Ethyl Alcohol Vitals: Last Vital Signs Temp 98.5 F 03/18/20 08:05 Pulse 80 03/18/20 10:35 Resp 17 03/18/20 10:35 BP 116/76 03/18/20 10:35 Pulse Ox 96 03/18/20 10:35 Discharge Plan Discharge Patient Disposition: Left Against Medical Advice Condition: Stable Prescriptions: No Action Klonopin 0.5 mg Tablet 0.5 mg PO Q8H PRN (Reason: unknown) RF: 0 promethazine 25 mg Tablet 25 mg PO PRN RF: 0 buprenorphine HCl 8 mg Tablet, Sublingual 12 mg SUBLINGUAL DAILY RF: 0 ondansetron HCl 4 mg tablet 4 mg PO Q8H PRN (Reason: nausea and vomiting) Qty: 10 RF: 0 clonidine HCl 0.1 mg tablet 0.1 mg PO TID Qty: 30 RF: 0 Discharge Diet: Usual diet Discharge Activity: Increase activity as tolerated Discharge Attestations Time Spent in Discharge Care*: less than 30 min Quality Metrics Clinical Quality Measures During this hospital stay, did patient experience: None Coding Level of Care Code Acute Associate Professor Of Forestry for Aba Raman Diagnoses Altered mental status R41.82 Overdose T50.902Y
--- NOTE | 2020-03-18 12:44 | PC.NURSE ---
AMA Patient has been sleeping entire shift, vitals WNL. Patient awoke demanding that she leave. Patient loudly demanding take this shit out as she points to her IV. Patient stating she is leaving now and asking how she got here. Explained history and reason for patient being hospitalized and tried to calm patient down and talk her into staying for formal Dr. evaluation now that she is awake. Patient refused. Dr. Dent notified. Called patient's daughter, Marli Richardson, with pt permission so she could come and get her. Daughter stated she would come get her. IV and Laureano removed. Tried to talk pt into staying in room until daughter arrived but patient refused. Security notified. Patient accompanied to ED doors by this nurse at 1233. Patient denies suicidal ideations/ thoughts of self harm, plan, denies reasons for being hospitalized. Patient alert and oriented x3, ambulating under her own power, does not appear to be in any distress. Charge nurse, Hannah, involved in situation. Patient does not have 96 hour paperwork. Belongings with patient.
== END 2020-03-18 12:59 | disposition left against medical advice (07) | DRG 917 ==
LOC: ER 04:35 → ICU 07:59
PROVIDERS: Admitting Provider Internal Medicine; Emergency Provider Emergency Medicine; Visit Provider Family Medicine
DX: T50.902A Poisoning by unspecified drugs, medicaments and biological substances, intentional self-harm, initial encounter (principal); G92 Toxic encephalopathy; F11.20 Opioid dependence, uncomplicated; E87.2 Acidosis; Y92.009 Unspecified place in unspecified non-institutional (private) residence as the place of occurrence of the external cause; R40.2422 Glasgow coma scale score 9-12, at arrival to emergency department; F17.210 Nicotine dependence, cigarettes, uncomplicated; F32.9 Major depressive disorder, single episode, unspecified; I10 Essential (primary) hypertension; G47.00 Insomnia, unspecified; F43.10 Post-traumatic stress disorder, unspecified; Z53.29 Procedure and treatment not carried out because of patient's decision for other reasons
CPT/HCPCS: 12345; 36600; 70450; 71045; 72125; 80053; 80306; 80307; 81003; 82140; 82550; 82803; 83735; 84443; 84703; 85025; 85610; 93005; 96372; 99283; J1650; J2310; J3411; J7030; J7799

== ENCOUNTER 2020-10-09 15:20 | Inpatient (IN) | payer OTHER, SELFPAY ==
[2020-10-09] VITALS (9 sets, daily range): BP systolic 105–138; BP diastolic 64–99; PULSE 67–86; RESP 16–24; TEMP 36.9–37; O2SAT 96–99; BMI 24.3
--- NOTE | 2020-10-09 15:39 | ECG_ITS ---
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 Measurements Intervals [place] Rate: 82 P: 65 NH: 138 QRS: -38 QRSD: 102 T: 47 QT: 391 QTc: 457 Interpretive Statements SINUS RHYTHM WITH SINUS ARRHYTHMIA LEFT AXIS DEVIATION [QRS AXIS < -30] INCOMPLETE RIGHT BUNDLE BRANCH BLOCK [90+ ms QRS DURATION, TERMINAL R IN V1/V2, 40+ ms S IN I/aVL/V4/V5/V6] Compared to ECG 03/18/2020 02:50:05 Left-axis deviation now present Electronically Signed On 10-09-2020 20:14:32 MECHANICAL INSULATOR by Dani Ba M.D. [email or web address]
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
[2020-10-09 16:27] LABS: Basophils # 0.1 10^3/uL (0.0-0.1); Eosinophils # 0.1 10^3/uL (0.0-0.8); Eosinophils % 1.1 %; Hematocrit 42.8 % (37.0-47.0); Hemoglobin 14.5 g/dL (11.5-15.3); Lymphocytes # 2.7 10^3/uL (0.8-4.8); Lymphocytes % 24.5 %; Mean Corpuscular HGB Conc 33.9 g/dL (30.0-36.0); Mean Corpuscular Hemoglobin 27.9 pg (28.0-34.0); Mean Corpuscular Volume 82.5 fL (81-99); Mean Platelet Volume 9.6 fL (7.4-10.4); Monocytes # 0.8 10^3/uL (0.2-0.9); Monocytes % 6.9 %; Neutrophils # 7.23 10^3/uL (1.8-7.7); Neutrophils % 66.3 %; Nucleated Red Blood Cells % 0 %; Platelet Count 469 10^3/cmm (130-400); Red Blood Count 5.19 10^6/uL (4.1-5.3); Red Cell Distribution Width 12.1 % (12.1-15.1); White Blood Count 10.9 10^3/uL (4.0-10.0)
[2020-10-09 16:58] LABS: Alanine Aminotransferase 17 U/L (0-33); Albumin Level 4.7 g/dL (3.5-5.2); Alkaline Phosphatase 85 IU/L (35-105); Anion Gap 17.7 (5-19); Aspartate Amino Transferase 18 U/L (0-32); Blood Urea Nitrogen 12 mg/dL (6-20); Calcium 9.5 mg/dL (8.5-10.5); Carbon Dioxide 23 mmol/L (22-29); Chloride 101 mmol/L (98-107); Glucose 81 mg/dL (65-115); Osmolality Calculated 285 mOsm/kg (285-295); Potassium 3.7 mmol/L (3.5-5.1); Sodium 138 mmol/L (136-145); Thyroid Stimulating Hormone 0.79 uIU/mL (0.27-4.20); Total Bilirubin 0.7 mg/dL (0.15-1.2); Total Protein 7.7 g/dL (6.6-8.7)
[2020-10-09 17:04] LABS: Acetaminophen < 5.0 ug/mL (10-30); Alcohol Level < 10 mg/dL (0-10); Salicylate < 0.3 mg/dL (3-10)
[2020-10-09] MEDS: OLANZapine 10 mg VIAL IM (17:12)
--- NOTE | 2020-10-09 17:40 | PC.NURSE ---
Continues to scream , restless and spit
--- NOTE | 2020-10-09 17:41 | PC.NURSE ---
Sitter outside room, continues to scream, restless and spit
[2020-10-09] MEDS: LORazepam 2 mg/mL INJ 1 mL IM (19:21)
[2020-10-09] MEDS: haloperidol inj 5 mg/mL INJ 1 mL IM (19:22)
--- NOTE | 2020-10-10 00:31 | PC.NURSE ---
after change of shift report, pt becoming extremely combative, screaming at the top of her lungs, not following commands. pt also becoming verbally abusive. Orders obtained for ativan and haldol IM. pt still able to fight against the restraint bed. orders obtained for 300mg ketamine prior to pt transfer to NPU. 150mg ketamine adm, pt subdued and resting comfortably. Pt transported to NPU in restraint bed with security system administrator. Pt able to awaken easily at arrival at NPU with verbal command from staff. pt able to stand and transfer to inpatient bed with staff assistance. updated med adm given to NPU RN
[2020-10-10 00:45] VITALS: BP 124/84; PULSE 84; RESP 20; O2SAT 96
--- NOTE | 2020-10-10 02:35 | PC.NURSE ---
combative pt Pt was sedated in the ED prior to admission to NPU. Attempted to change the patient out of paper scrubs but she became agitated. Staff was only able to get the shirt changed at this time. Pt returned to sleep.
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
[2020-10-10 06:00] VITALS: RESP 19
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
[2020-10-10 14:00] VITALS: RESP 18
[2020-10-10] MEDS: acetaminophen 325 mg Tablet 650 MG PO (19:20)
[2020-10-10] MEDS: ziprasidone 20 mg/mL SDV IM (19:21)
[2020-10-10 21:21] VITALS: BP 122/88; PULSE 100; RESP 19; O2SAT 98
[2020-10-11 06:00] VITALS: RESP 18
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
[2020-10-11] MEDS: ziprasidone 20 mg/mL SDV IM ×2 (11:55→19:48)
--- NOTE | 2020-10-11 11:55 | PC.NURSE ---
Addendum entered by Brendan Frye RN 10/11/20 18:32: LATE ENTRY FOR 1206 PT CONTINUES TO BE AGITATED. PHYSICIAN ORDERED ONE TIME KLONOPIN 1 MG. Original Note: PRN GEODON 20 MG GIVEN IM PER PT C/O STATED AGITATION/ANXIETY. PT SAID I'M FEELING REALLY PISSED OFF TOOK INJECTION IN RIGHT DELTOID. STAFF CONT TO MONITOR
[2020-10-11] MEDS: CLONazepam 1 mg Tablet PO ×2 (12:06→19:40)
[2020-10-11 14:00] VITALS: RESP 18
[2020-10-11] MEDS: OLANZapine 10 mg VIAL IM (14:17)
--- NOTE | 2020-10-11 14:17 | PC.NURSE ---
Addendum entered by Brendan Frye RN 10/11/20 18:31: LATE ENTRY FOR 1500. MEDICATION EFFECTIVE. PT RESTING QUIETLY AT THIS TIME. Original Note: PRN ZYPREXA 10 MG GIVEN IM IN LEFT DELTOID PER PT C/O STATED AGITATION. PT STATING TO STAFF SHE IS VERY UPSET, THREATENED TO SMEAR SHIT ALL OVER YOU! PT GETTING VERBALLY AND PHYSICALLY AGGRESSIVE, UPSET THAT SHE HAS A 1:1 SITTER OUTSIDE HER DOOR. PT SWUNG DOOR IN HER ROOM TOWARDS 1:1 SITTER, YELLING AND CURSING AT HER. PT TOOK MED WITHOUT INCIDENT. WILL CONT TO MONITOR FOR DESIRED MED EFFECTIVENESS.
--- NOTE | 2020-10-11 15:09 | PC.RESP ---
SMOKING CESSATION INFORMATION SENT TO PATIENT.
--- NOTE | 2020-10-11 19:47 | PC.NURSE ---
At 1920 the patient was agitated and shouting. She was kicking the footboard of her bed. She was asking for medication. Vistaril 50 mg po and Geodon 20 mg po offered. The patient said she wanted Klonopin and Suboxone. Spoke with Dr. Martino. Order received for Klonopin 1 mg po bid prn and Klonopin 1 mg bid scheduled. The patient then asked for the Geodon IM which was given. Klonopin 1 mg po given prn for anxiety.
[2020-10-11 19:50] VITALS: BP 116/84; PULSE 72; RESP 19; TEMP 36.8; O2SAT 91
[2020-10-11] MEDS: OLANZapine 5 mg ODT PO (20:44)
[2020-10-11] MEDS: trazodone 50 mg Tablet PO (20:45)
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
--- NOTE | 2020-10-11 20:48 | PC.NURSE ---
Prn's Zyprexa Zydis 5mg PO given for anxiety. Trazodone 50mg PO given for insomnia. Will continue to monitor pt.
--- NOTE | 2020-10-11 20:53 | P.PN_ITS ---
Subjective NPU Subjective: Interval history: Patient presents today continuing to be irritable and require as needed medication. She has been demanding buprenorphine even though she does not have an active prescription. We agreed to restart some of her Klonopin but she is very insistent that she get which she is demanding. She is still on one-to-one. Mental Status Exam MSE Comments: This is a well-nourished well-developed white female in hospital scrubs with limited grooming and eye contact. No abnormal movements except for significant psychomotor retardation intermixed with significant psychomotor agitation. Uncooperative with exam in moderate to extreme distress. Speech was limited and decreased rate and volume followed by screaming tirades. Mood described as irritated, affect congruent. Thought process mostly organized. Thought content: Patient not responding to questions of lethality or perceptual disturbances and was demonstrating aggression towards others prior to coming to the unit and overall agitation and aggression in general and did not appear to be attending to internal stimuli.. Attention and concentration were impaired and memory was mostly reliable but limited but none were formally tested. She alert and oriented x3. Insight and judgment are impaired and impulse control is impaired. Vitals/I&O/Wt Last Vital Signs Temp 98.3 F 10/11/20 19:50 Pulse 72 10/11/20 19:50 Resp 19 H 10/11/20 19:50 BP 116/84 10/11/20 19:50 Pulse Ox 91 10/11/20 19:50 Data NPU : 10/09/20 16:18 10/09/20 16:18 A&P Additional A&P Information (1) Acute psychosis: (2) Suicidal ideation: This is a 40-year-old white female with a long history of mental health and addiction issues as well as a long legal history consistent with it who presents combative and sedated in a limited historian. 1. Continue current medication. Start Klonopin 0.5 mg p.o. twice daily and allowed to have as needed Klonopin for the time being. We will continue to hold buprenorphine until we get acknowledgment that her outside provider will continue that medication. 2. Continue one-to-one observation until we determine that she is able to be safe on every 15 minute checks. 3. Encourage individual, group and milieu therapy. 4. Encourage sober living follow-up after discharge at the highest level of care to which she is willing to commit. 5. We will work to get additional information from her or collateral information from significant community entities. Involuntary Hold Information 96 Hour Hold: 96 Hour Involuntary Admission: Yes 96 Hour Hold Ending Date: 10/24/20 96 Hour Hold Ending Time: 15:20 Attestations NPU Medical Necessity Statement*: Inpatient hospitalization is medically necessary and the clinically appropriate intervention at this time. We will monitor medi cations and changes as indicated. Likely length of stay 3-5 days. Coding Level of Care Code Acute [employer]ular Products Fabricator for Aba Raman
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
[2020-10-12 06:00] VITALS: RESP 14
[2020-10-12] MEDS: CLONazepam 0.5 mg Tablet PO (10:25)
[2020-10-12] MEDS: ziprasidone hcl 20 mg Capsule PO ×2 (11:32→16:57)
--- NOTE | 2020-10-12 11:32 | PC.NURSE ---
Addendum entered by Marta Vieira LPN 10/12/20 13:27: prn med not effective pt cont to be verbally aggressive with staff, threatening to break shit Original Note: PRN GEODON 20 MG GIVEN PO PER PT C/O STATED ANXIETY/AGITATION. PT STATED THAT KLONOPIN ISN'T STRONG ENOUGH
--- NOTE | 2020-10-12 11:53 | PM.NPN ---
Subjective NPU Subjective: Interval history: Alireza presented today reporting that she was very irritable and required more or less a code 10 with multiple staff to manage her irritability. She was making threats towards a particular staff member and continues to report being on Suboxone and Klonopin but continues to struggle to give us a location where it can be confirmed. She required as needed medication in order to calm herself down. Mental Status Exam MSE Comments: This is a well-nourished well-developed white female in hospital scrubs with limited grooming and eye contact. No abnormal movements except for significant psychomotor retardation intermixed with significant psychomotor agitation. More cooperative with exam in moderate to extreme distress. Speech was limited and decreased rate and volume followed by screaming tirades. Mood described as irritated, affect congruent. Thought process mostly organized. Thought content: Patient not responding to questions of lethality or perceptual disturbances and was demonstrating aggression towards others prior to coming to the unit and overall agitation and aggression in general and did not appear to be attending to internal stimuli.. Attention and concentration were impaired and memory was mostly reliable but limited but none were formally tested. She alert and oriented x3. Insight and judgment are impaired and impulse control is impaired. Vitals/I&O/Wt Last Vital Signs Temp 98.3 F 10/11/20 19:50 Pulse 72 10/11/20 19:50 Resp 14 10/12/20 06:00 BP 116/84 10/11/20 19:50 Pulse Ox 91 10/11/20 19:50 Data NPU : 10/09/20 16:18 10/09/20 16:18 A&P Additional A&P Information (1) Acute psychosis: (2) Suicidal ideation: This is a 40-year-old white female with a long history of mental health and addiction issues as well as a long legal history consistent with it who presents combative and sedated in a limited historian. 1. Continue current medication. We will continue to hold buprenorphine until we get acknowledgment that her outside provider will continue that medication. 2. Continue one-to-one observation until we determine that she is able to be safe on every 15 minute checks. 3. Encourage individual, group and milieu therapy. 4. Encourage sober living follow-up after discharge at the highest level of care to which she is willing to commit. 5. We will work to get additional information from her or collateral information from significant community entities. Involuntary Hold Information 96 Hour Hold: 96 Hour Involuntary Admission: Yes 96 Hour Hold Ending Date: 10/24/20 96 Hour Hold Ending Time: 15:20 Attestations NPU Medical Necessity Statement*: Inpatient hospitalization is medically necessary and the clinically appropriate intervention at this time. We will monitor medications and changes as indicated. Likely length of stay 2-4 days. Coding Level of Care Code Acute [employer] Supervisor for Aba Raman
--- NOTE | 2020-10-12 13:13 | PC.NURSE ---
disruptive, yelling and cursing from room. pt came to the desk, told this nurse she was about to flip the fuck out and break shit! pt went to her room and slammed the door. security called to nursing unit, physician notified of behavior. recommended to give IM injections of Benadryl & Zyprexa. this nurse got injections ready and went into pt room with security and cupola charger. explained to pt that injections were ordered by physician. pt yelled I don't want that shit! I wake up feeling the same way, just wanting to kill people! staff encouraged pt to take injections as suggested. pt refused to take injections at this time. pt lying in bed in room. staff will cont to monitor closely
--- NOTE | 2020-10-12 13:50 | PC.NURSE ---
pt flooded toiled in bathroom, put a small cup in the toilet so it would flood the floor. pt also smeared toothpaste over the mirror and light switches in room. pt threatened staff this is only the beginning. physician notified. physician spoke with pt in her room, pt cont to be verbally aggressive with staff/physician. physician ordered for prn injections to be given at this time, Zyprexa, Ativan, Benadryl. staff entered room with security, physician, greenhouse superintendent, and another nurse. this nurse explained to pt that injections were going to be given at this time. pt looked at this nurse and said I want to kill you, I am planning to kill you. And tomorrow I'll just do this all over again and I'll want to kill you or anybody else that looks like you. pt demanded that injections be given by another nurse. all three injections given by CARROL Santos. Zyprexa 10 mg IM in right deltoid, Ativan 2 mg IM in right deltoid, and Benadryl 50 mg IM in left deltoid. upon removing blankets, staff saw a ripped up sheet, pt looked at this nurse again and said that's for you! at this time this nurse stepped out of the room. lost charge card clerk and physician told pt that for her safety we would be moving her to room #170 & also be putting a 1:1 sitter with her. pt escorted to room #170 by staff, once in the room pt started spitting on the floor, also took her hands and touched her vagina then was walking around touching the mendez. physician notified and pt was put in seclusion room with the door shut. mattress on the floor, pt attempting to cover up camera with her shirt, then sat down on the floor and was ripping at the mattress. pt then set mattress up against the glass in the window so 1:1 staff member couldn't see in. nurses at the nurses desk could still see pt from camera view. staff went down and removed mattress from room at this time. after mattress was removed, pt then pulled her pants down and peed on the floor. pt hitting and kicking the door and screaming at staff. will cont to monitor
[2020-10-12 14:00] VITALS: BP 104/68; PULSE 83; RESP 18; TEMP 36.8; O2SAT 99
[2020-10-12] MEDS: OLANZapine 10 mg VIAL IM (14:23)
[2020-10-12] MEDS: LORazepam 2 mg/mL INJ 1 mL IM (14:24)
[2020-10-12] MEDS: diphenhydrAMINE 50 mg/mL SDV 1mL IM (14:24)
--- NOTE | 2020-10-12 15:05 | PC.NURSE ---
Pt Behavior Client in the seclusion room taking her pants off and attempting to wrap the legs of her pants around her neck. Client continues to act out and is currently a threat to herself and others. Client remains one on one with staff.
--- NOTE | 2020-10-12 15:20 | PC.NURSE ---
Pt Behavior; Client continues to take her pants off and wrap them around her neck. Staff is unable to be redirected by staff. Staff continues to monitor.
--- NOTE | 2020-10-12 15:30 | PC.NURSE ---
Pt Behavior Code ten called client moved from seclusion room to the restraint room and placed in 4 pt restraints. Client placed in restraints to prevent her from harming herself. Client remains on one to one observation while in the restraint room. Staff will continue to monitor.
--- NOTE | 2020-10-12 16:52 | PC.NURSE ---
Face to face completed at 1632; Client offered food and drink provided a drink of water at clients request. aclient set up in bed to drinke water from a cup through a straw. Client assessed by RN. Vital signs within normal limits respirations are even and unlabored. Client remains 1:1 while in 4 point restraints in the restraint room.
--- NOTE | 2020-10-12 18:21 | PC.NURSE ---
Pt removed from restraints at 181. Pt assisted to the bathroom where she urinated in the toilet. Client assisted to her room where she remains on one to one observation for her own safety. Client provide food and water in her room.
[2020-10-12 20:13] VITALS: RESP 15
--- NOTE | 2020-10-12 22:26 | PC.NURSE ---
PM ASSESSMENT PT IS MEDICATED AT THIS TIME. SHE IS RESTING IN HER ROOM. RESPIRATIONS ARE 15. PT CONTINUES TO REST WITHOUT ANY S/S SYMPTOMS OF DISTRESS AT THIS TIME. IT IS NECESSARY FOR THIS PATIENT TO HAVE A 1:1 SITTER DUE TO HER BEHAVIOR THIS AFTERNOON. 1:1 SITTER IS AT THE BEDSIDE. PER AM SHIFT REPORT, PT IS AGGRESSIVE, VERBALLY ASSAULTIVE, ACTING OUT BY YELLING, KICKING, SPITTING, RUBBING FLUIDS FROM HER VAGINA ON THE TREVIZO, WINDOWS, DOOR HANDLES. PT HAS DESTROYED TOWEL, RIPPED INTO STRIP TO ATTEMPT TO STRANGLE HERSELF POSSIBLY STAFF. PT INTENTIONALLY PLACED A STYROFOAM CUP INTO THE TOILET TO CAUSE OVERFLOW. SHE FLOODED HER ROOM. PT URINATED IN THE MIDDLE OF THE FLOOR TWICE. PT IS FIXATED ON MORNING SHIFT NURSE, THREATENING TO HARM HER. pT HAS NOT MADE PHYSICAL CONTACT AT THIS POINT. WILL CONTINUE TO MONITOR THIS PATIENT FOR ANY FURTHER NEEDS.
[2020-10-13] MEDS: hyDROXYzine 25 mg Capsule 50 MG PO (02:26)
[2020-10-13] MEDS: CLONazepam 1 mg Tablet PO ×3 (02:27→21:00)
[2020-10-13] MEDS: trazodone 50 mg Tablet PO (02:27)
[2020-10-13] MEDS: OLANZapine 5 mg ODT PO (02:27)
--- NOTE | 2020-10-13 02:34 | PC.NURSE ---
physician location Marck Collier ([facility]) [address] [place] [address] clinic opens at 8am This is where this patient received the last RX for Klonipin and Subutex. around the 18th per pt.
--- NOTE | 2020-10-13 02:36 | PC.NURSE ---
[facility] Camp located at [address] [place] [phone] opens at 9am Pt stated that she has received her last prescription from the suboxone clinic at [facility] and had them filled at this location.
--- NOTE | 2020-10-13 02:40 | PC.NURSE ---
0227-Pt awake Pt is awake and informative this morning. She gave information to nurse about how to reach the clinic and where she fills her subutex in [place]. Pt denies AH/VH, Denies pain, Denies SI/HI. She said that she was upset yesterday because it took so long to get anything. Pt is in her room eating ice cream at this time with a 1:1 sitter at the bedside. Will continue to monitor pt behavior for safety.
[2020-10-13 05:51] VITALS: BMI 24.3
[2020-10-13 06:00] VITALS: RESP 16
[2020-10-13] MEDS: nicotine 21 mg Patch 1 PATCH TRANSDERMA (08:22)
[2020-10-13] MEDS: CLONazepam 0.5 mg Tablet PO ×2 (08:23→16:30)
--- NOTE | 2020-10-13 10:39 | PC.NURSE ---
KLONOPIN ADMINISTERED KLONOPIN 1 MG PO FOR INCREASING AGITATION. WILL MONITOR FOR MEDICATION EFFECTIVENESS.
--- NOTE | 2020-10-13 10:43 | PC.NURSE ---
Addendum entered by DAVIS Youssef 10/13/20 15:35: SPOKE TO RICKY AT [facility] TO DOUBLE CHECK SUBUTEX RX. PER RICKY PATIENT TAKES 8MG BID. PER TVORB FROM DR. LEIJA SUBOXONE CAN BE CHANGED TO 8 MG BID Addendum entered by DAVIS Youssef 10/13/20 11:29: PT TAKES SUBUTEX. PHARMACY DOES NOT CARRY SUBUTEX. PER DR. LEIJA IF PATIENT IS AGREEABLE WE CAN SUBSTITUTE SUBOXONE. SPOKE WITH PT AND SHE STATES SUBOXONE WILL BE FINE. FISH SANTOS RN WITNESSED THAT PATIENT IS AGREEABLE TO SUBOXONE. Original Note: PRESCRIPTIONS VERIFIED RX WITH JEFE[facility]Maddie IN [place] [phone]. PER GLENN AT [facility] KLONOPIN 1 MG BID & BUPRENORPHINE 8MG SUBLINGUAL WAS FILLED AUGUST & September & WRITTEN BY KOFFI SMITH FROM [place]. PHYSICIAN NOTIFIED OF CURRENT RX.
[2020-10-13] MEDS: buprenorphine-naloxone 4-1 mg Film 1 EACH SUBLINGUAL ×2 (11:47→14:34)
[2020-10-13] MEDS: ziprasidone hcl 20 mg Capsule PO (12:06)
--- NOTE | 2020-10-13 12:06 | PC.NURSE ---
CHENTE ADMINISTERED GEODON 20MG FOR PT C/O INCREASING AGITATION. WILL MONITOR FOR MEDICATION EFFECTIVENESS.
[2020-10-13 14:00] VITALS: BP 104/72; PULSE 103; RESP 18; TEMP 36.4; O2SAT 98
[2020-10-13] MEDS: nicotine 2 mg Gum BUCCAL (14:37)
--- NOTE | 2020-10-13 16:51 | P.PN_ITS ---
Subjective NPU Subjective: Interval history: Alireza was able to articulate her situation a little better today. We were able to identify her outside pharmacy and confirm her medication. She endorsed a desire to discharge we discussed the importance of her demonstrating safety prior to that. We agreed to give her a trial off of the one-to-one as a precursor to a consideration for discharge. Mental Status Exam MSE Comments: This is a well-nourished well-developed white female in hospital scrubs with improved grooming and eye contact. No abnormal movements except for psychomotor retardation. More cooperative with exam in mild distress. Speech was more spontaneous with decreased rate and volume. Mood described as a little better, affect congruent. Thought process mostly organized. Thought content: Patient denied suicidal or homicidal ideation, there were no delusions reported or noted, she denied any auditory or visual hallucinations. Attention and concentration were improving and memory was mostly reliable but none were formally tested. She alert and oriented x3. Insight and judgment are impaired, but improving and impulse control is impaired. Vitals/I&O/Wt Last Vital Signs Temp 97.5 F L 10/13/20 14:00 Pulse 103 H 10/13/20 14:00 Resp 18 10/13/20 14:00 BP 104/72 10/13/20 14:00 Pulse Ox 98 10/13/20 14:00 Weight last 48 hrs Weight 72.575 kg Data NPU : 10/09/20 16:18 10/09/20 16:18 A&P Additional A&P Information (1) Acute psychosis: (2) Suicidal ideation: This is a 40-year-old white female with a long history of mental health and addiction issues as well as a long legal history consistent with it who presents combative and sedated in a limited historian. 1. Continue current medication. Start Suboxone 8 mg twice daily sublingual and increase Klonopin to 1 mg p.o. twice daily. 2. Initiate every 15 minute checks. 3. Encourage individual, group and milieu therapy. 4. Encourage sober living follow-up after discharge at the highest level of care to which she is willing to commit. 5. We will work to get additional information from her or collateral information from significant community entities. Involuntary Hold Information 96 Hour Hold: 96 Hour Involuntary Admission: Yes 96 Hour Hold Ending Date: 10/24/20 96 Hour Hold Ending Time: 15:20 Attestations NPU Medical Necessity Statement*: Inpatient hospitalization is medically necessary and the clinically appropriate intervention at this time. We will monitor medications and changes as indicated. Likely length of stay 1-3 days. Coding Level of Care Code Acute Inspection Manager for Aba Raman
[2020-10-13] MEDS: ziprasidone hcl 40 mg Capsule PO (17:00)
[2020-10-13] MEDS: buprenorphine-naloxone 4-1 mg Film 2 EACH SUBLINGUAL (17:00)
--- NOTE | 2020-10-13 17:03 | PC.NURSE ---
PRN CONNORONOPIN ADMINISTERED KLONOPIN 0.5MG PO. PT WAS PACING IN HER ROOM. WHEN I ASKED HER IF SHE WAS OK, SHE STATED THAT HER ANXIETY WAS INCREASING. WILL MONITOR FOR MEDICATION EFFECTIVENESS.
[2020-10-13 19:50] VITALS: BP 106/73; PULSE 102; RESP 20; TEMP 36.5; O2SAT 95
[2020-10-13] MEDS: quetiapine 100 mg Tablet PO (21:01)
[2020-10-14] MEDS: ziprasidone hcl 40 mg Capsule PO ×2 (05:50→17:38)
[2020-10-14 06:00] VITALS: BP 100/65; PULSE 76; RESP 18; TEMP 36.7; O2SAT 95
[2020-10-14] MEDS: CLONazepam 1 mg Tablet PO ×2 (08:02→20:18)
[2020-10-14] MEDS: buprenorphine-naloxone 4-1 mg Film 2 EACH SUBLINGUAL ×2 (08:06→17:38)
--- NOTE | 2020-10-14 12:30 | P.PN_ITS ---
Subjective NPU Subjective: Interval history: Alireza presented today fairly lethargic and looking like she is really adjusting to the restarting of her medication. She does not have a plan for where she is undergoing she leaves and her the treatment team are working on that. We discussed her making it 24 hours without any acts of aggression and we will look to discharge in the next 48 hours, ho pefully tomorrow. She reports that she is feeling less irritable and had no negative reports from staff. Mental Status Exam MSE Comments: This is a well-nourished well-developed white female in hospital scrubs with improved grooming and eye contact. No abnormal movements except for psychomotor retardation. More cooperative with exam in mild distress. Speech was more spontaneous with decreased rate and volume. Mood described as ok, affect congruent. Thought process mostly organized. Thought content: Patient denied suicidal or homicidal ideation, there were no delusions reported or noted, she denied any auditory or visual hallucinations. Attention and concentration were improving and memory was mostly reliable but none were formally tested. She alert and oriented x3. Insight and judgment are improving,and impulse control is impaired, but improving. Vitals/I&O/Wt Last Vital Signs Temp 98.1 F 10/14/20 06:00 Pulse 76 10/14/20 06:00 Resp 18 10/14/20 06:00 BP 100/65 10/14/20 06:00 Pulse Ox 95 10/14/20 06:00 Weight last 48 hrs Weight 72.575 kg Data NPU : 10/09/20 16:18 10/09/20 16:18 A&P Additional A&P Information (1) Acute psychosis: (2) Suicidal ideation: This is a 40-year-old white female with a long history of mental health and addiction issues as well as a long legal history consistent with it who presents combative and sedated in a limited historian. 1. Continue current medication. We will discontinue any as needed david odiazepines. 2. Initiate every 15 minute checks. 3. Encourage individual, group and milieu therapy. 4. Encourage sober living follow-up after discharge at the highest level of care to which she is willing to commit. 5. We will work to get additional information from her or collateral information from significant community entities. Involuntary Hold Information 96 Hour Hold: 96 Hour Involuntary Admission: Yes 96 Hour Hold Ending Date: 10/24/20 96 Hour Hold Ending Time: 15:20 Attestations NPU Medical Necessity Statement*: Inpatient hospitalization is medically necessary and the clinically appropriate intervention at this time. We will monitor med ications and changes as indicated. Likely length of stay 1-3 days. Coding Level of Care Code Acute Inpatient Services Rn for Aba Raman
[2020-10-14 14:00] VITALS: BP 99/55; PULSE 81; RESP 18; TEMP 36.4; O2SAT 95
[2020-10-14] MEDS: quetiapine 100 mg Tablet PO (20:18)
[2020-10-14] MEDS: haloperidol 5 mg Tablet PO (20:29)
[2020-10-14 21:09] VITALS: BP 103/70; PULSE 92; RESP 18; TEMP 36.8; O2SAT 97
--- NOTE | 2020-10-14 22:58 | PC.NURSE ---
PM assessment Pt heart/lung sounds normal, pt denies pain, pt denies AH/VH, Pt denies SI/HI. Resting in her room calmly. Pt allowed v/s to be obtained by staff. Pt is very groggy from medication earlier in the day. She asked if she missed dinner and became very upset. Pt offered a snack. She accepted but indicated that she still needed more to eat. Nurse camp maintenance supervisor was on unit at time of request, opened the kitchen, and pt received a hot meal. Pt requested to make a formal complaint regarding meals not being provided to patients while sleeping. Incident report made, Shank Breaker aware of issue, Nurse Professional Skater notified via email of pt concerns/report. Pt received night medications and returned to bed.
[2020-10-15 06:00] VITALS: BP 102/67; PULSE 65; RESP 18; TEMP 36.8; O2SAT 97
[2020-10-15] MEDS: ziprasidone hcl 40 mg Capsule PO ×2 (06:54→16:53)
[2020-10-15] MEDS: buprenorphine-naloxone 4-1 mg Film 2 EACH SUBLINGUAL ×2 (08:20→16:53)
[2020-10-15] MEDS: CLONazepam 1 mg Tablet PO (08:20)
--- NOTE | 2020-10-15 11:34 | PC.NURSE ---
pt up in day room eating a hot lunch tray at this time. also given Sprite
[2020-10-15 13:42] VITALS: BP 101/66; PULSE 91; RESP 20; TEMP 36.8; O2SAT 94
[2020-10-15] MEDS: OLANZapine 5 mg ODT PO (15:28)
[2020-10-15] MEDS: nicotine 21 mg Patch 1 PATCH TRANSDERMA (15:28)
--- NOTE | 2020-10-15 15:31 | PC.NURSE ---
Patient requesting a meal stating that she has not ate today. Patient was informed that she was fed 2 hot meals breakfast and lunch and that she ate both meals. She began to state that she did not eat and she would like to view the camera to prove she did eat. She began to raise her voice and state she hasnt had any of her medications either. I did inform her that she did have her meds and stated that she dissolved the suboxen when she took it. She then demanded something for her nerves befor she flips out . I reminded her that she complained about not remembering meals and meds and that she was tired of feeling sleepy as stated in a previous conversation. She states she needs something and asked for klonopin as she takes it 3 times a day. Patient was informed that the order was written for BID. I offered her Zyprexa and she took the medication as ordered. She also requested a Nicotine Patch and one was placed on her Left Arm. Patient began to calm. Will continue to closely monitor. ARSENIO, MERY
--- NOTE | 2020-10-15 16:36 | PM.NDC ---
Diagnoses at Discharge Discharge Diagnosis (1) Acute psychosis: Status: Resolved (2) Suicidal ideation: Status: Resolved (3) PTSD (post-traumatic stress disorder): Status: Acute (4) Anxiety: Status: Acute (5) Opioid use disorder, mild, on maintenance therapy, abuse: Status: Acute Reason for Visit Reason for Visit: 96 Brief History: History of Present Illness Alireza Adams is a 40 year old female who presented to the emergency department with the following report: Chief Complaint: Psychiatric Symptoms Stated Complaint: 96 Time Seen by Provider: 10/09/20 15:39 History of Present Illness: HPI Narrative: 40 year old female brought in by law enforcement after altercation and aggressive behavior at the alf and court house today. The patient has been uncooperative and combative today. She had to be transported in handcuffs but then got out of them and was resisting and not following commands prompting physical restraints. The patient has a long standing history of mental illness and has been threatening self harm and hurting others. Secondary to this patient was recommended for 96 hour hold by the packaging materials inspector. MD complaint: suicidal ideation and altered mental status Duration: constant and getting worse History of same: Yes Relieving factors: none Exacerbating factors: none Context: significant life stressor Associated psychiatric symptoms: depression, suicidal ideation, homicidal ideation and racing thoughts Treatments prior to arrival: placed on mental health hold, physical restraints and chemical restraints If self harm: admits thoughts of self harm. She was admitted to the neuropsychiatric unit for definitive treatment of those issues. She was approached multiple times this morning and attempt to get some significant confirmation with limited success. She endorses being very tired which makes sense because due to her aggressiveness and agitation she received ketamine and multiple as needed's prior to reaching the unit and has essentially slept since she got here. She endorses being on Klonopin and buprenorphine but we will have any clear knowledge about that. We will need to get a hold of [facility] or what ever other providers she had. Is not clear what the actual circumstance of her interaction with the police fully included, however she is on a 96-hour hold secondary to aggression and reported psychosis. There are reports of methamphetamine as a source but due to her agitation and aggression no urine drug screen was obtained. She has an extensive legal history and at best we can determine there was a of one of her children and a Paramore was charged in the actual and she has been charged for child abuse and negligence and allowing that person to be the primary caregiver at the moment of the incident. History suggest that she was put on probation for about 20 years and this was in January 2006. Reportedly addiction and mental health proceeded this incident and have likely/possibly followed the event. She endorsed a willingness to allow the Klonopin and Suboxone to be started but we need to identify that she has active prescription for the medications especially given their controlled status. No additional information was available secondary to her level of sedation. Hospital Course Hospital Course Alireza presented to the emergency department [id number], combatant, appearing psychotic and aggressive. She required significant medication interventions to control said aggression. She admitted to the neuropsychiatric unit for definitive treatment of those issues. On the unit she very slowly acclimated to the individual, group and milieu therapy provided she did require one-to-one observation and I am medication and had code 10's called. Eventually she was accepting of Geodon and it was titrated to 40 mg p.o. twice daily. Her home medications were continued. She worked with the treatment team to get some continuity of services prior to discharge. During the hospitalization, patient had routine laboratory studies which were within normal limits except for few outliers. Additionally there was a general medical evaluation which was also within normal limits and revealed no new acute processes. Discharge Summary: At the time of discharge, she was lethality or psychosis. Mood and anxiety were well managed. Patient endorsed a plan to avoid all drugs of abuse and follow-up with the aftercare recommendations of the treatment team. Patient was evaluated and deemed to be absent credible lethality, and had achieved the maximum benefit from an inpatient hospitalization, so was discharged. Involuntary Hold Information 96 Hour Hold: 96 Hour Involuntary Admission: Yes 96 Hour Hold Ending Date: 10/24/20 96 Hour Hold Ending Time: 15:20 Mental Status Exam MSE Comments: This is a well-nourished well-developed white female in hospital scrubs with improved grooming and eye contact. No abnormal movements except for resolving psychomotor retardation. Cooperative with exam in no acute distress. Speech was more spontaneous with more normal rate and volume. Mood described as better, affect congruent. Thought process mostly organized. Thought content: Patient denied suicidal or homicidal ideation, there were no delusions reported or noted, she denied any auditory or visual hallucinations. Attention and concentration were improving and memory was mostly reliable but none were formally tested. She alert and oriented x3. Insight and judgment are improving,and impulse control is impaired, but improving. Discharge Data Data Completed and Pending: Pending at discharge Category Date Time Status Drug Screen, Urin e Stat Lab 10/09/20 15:39 Uncollected Urinalysis Stat Lab 10/09/20 15:39 Uncollected Vitals: Last Vital Signs Temp 98.2 F 10/15/20 13:42 Pulse 91 10/15/20 13:42 Resp 20 H 10/15/20 13:42 BP 101/66 10/15/20 13:42 Pulse Ox 94 10/15/20 13:42 Discharge Plan Discharge Patient Disposition: Home Condition: Stable Prescriptions: New ziprasidone HCl 40 mg Capsule 40 mg PO 0700,1700 30 Days Qty: 60 RF: 1 clonazepam 1 mg Tablet 1 mg PO 0900,2100 30 Days Qty: 60 RF: 1 Continued promethazine 25 mg Tablet 25 mg PO PRN RF: 0 Seroquel 100 mg Tablet 100 mg PO BEDTIME 30 Days Qty: 30 RF: 1 Changed buprenorphine HCl 8 mg Tablet, Sublingual 16 mg SUBLINGUAL DAILY Qty: 0 RF: 0 Discontinued clonazepam [Klonopin] 0.5 mg Tablet 0.5 mg PO Q8H PRN (Reason: unknown) RF: 0 ondansetron HCl 4 mg tablet 4 mg PO Q8H PRN (Reason: nausea and vomiting) Qty: 10 RF: 0 clonidine HCl 0.1 mg tablet 0.1 mg PO TID Qty: 30 RF: 0 amitriptyline 100 - 150 mg PO BEDTIME RF: 0 Discharge Orders: Discharge Order (Routine); Ordered 10/15/20 Ordered By: Sj Martino Referrals: [facility] [Other] (Follow up for treatment. They are the same system as your [facility] provider so will have access to your records.) [facility] [Other] Discharge Diet: Regular Discharge Activity: Resume usual activity Discharge Attestations NPU Time Spent in Discharge Care*: less than 30 min Specific Discharge Activities: Specific discharge activities: educating patient, discussing with caseworker protective services/social workers/dc planners, documenting/other paperwork and evaluating patient/reviewing data Coding Level of Care Code Acute [place] for g Fwd Diagnoses Acute psychosis F23 Suicidal ideation R45.851 PTSD (post-traumatic stress disorder) F43.10 Anxiety F41.9 Opioid use disorder, mild, on maintenance therapy, abuse F11.10
[2020-10-15 16:37] VITALS: BP 101/66; PULSE 91; RESP 20; TEMP 36.8; O2SAT 94
--- NOTE | 2020-10-15 16:45 | PC.NURSE ---
PT ATE DINNER, 75%, IN THE DAY ROOM
--- NOTE | 2020-10-16 11:04 | PC.NURSE ---
[facility] script: Patient called to state she did not get her script for Clonazepam 1mg PO 0900, 2100 30 days qty 60. I called Taya at [facility] Ext. [phone] to inquire if scripts were picked up by patient. Taya states that patient did not bead picker script for Clonazepam as there was a charge of $11.81. Informed patient that there was a charge for the script and that she would have to pay for the script. I asked patient if she had another pharmacy that i could send it to as she was in [place] and she states to send script to [facility], [facility]. [place]. Script was called and patient notified. MERY CESAR
== END 2020-10-15 17:30 | disposition home or self-care (01) | DRG 885 ==
LOC: ER 17:08 → NP 18:39
PROVIDERS: Admitting Provider Psychiatry & Neurology Psychiatry; Emergency Provider Family Medicine; PCP Nurse Practitioner Family; Visit Provider Psychiatry & Neurology Psychiatry
DX: F23 Brief psychotic disorder (principal); R45.851 Suicidal ideations; F32.9 Major depressive disorder, single episode, unspecified; R45.850 Homicidal ideations; F43.10 Post-traumatic stress disorder, unspecified; G47.00 Insomnia, unspecified; F17.210 Nicotine dependence, cigarettes, uncomplicated
CPT/HCPCS: 12345; 80053; 80307; 84443; 85025; 93005; 96372; 96375; 99284; J0573; J1200; J1630; J2060; J3486; J3490

== ENCOUNTER → 2023-07-08 15:10 | Outpatient (BNVA) | payer SELFPAY | PROVIDERS: PCP Nurse Practitioner Family; Visit Provider Family Medicine | DX: B19.20 Unspecified viral hepatitis C without hepatic coma (principal); F11.10 Opioid abuse, uncomplicated; F41.9 Anxiety disorder, unspecified; F43.10 Post-traumatic stress disorder, unspecified; N23 Unspecified renal colic; Z11.59 Encounter for screening for other viral diseases; Z76.89 Persons encountering health services in other specified circumstances | CPT/HCPCS: 80053; 81000; 85025; 86803 ==

== ENCOUNTER → 2023-07-09 16:58 | Outpatient (BNVA) | payer SELFPAY | PROVIDERS: PCP Nurse Practitioner Family; Visit Provider Family Medicine | DX: B19.20 Unspecified viral hepatitis C without hepatic coma (principal); F11.10 Opioid abuse, uncomplicated; F41.9 Anxiety disorder, unspecified; F43.10 Post-traumatic stress disorder, unspecified; N23 Unspecified renal colic; Z11.59 Encounter for screening for other viral diseases; Z76.89 Persons encountering health services in other specified circumstances | CPT/HCPCS: 87522 ==

== ENCOUNTER → 2023-07-19 13:53 | Outpatient (BNVA) | payer SELFPAY | PROVIDERS: PCP Nurse Practitioner Family; Visit Provider Family Medicine | DX: N39.0 Urinary tract infection, site not specified (principal); B19.20 Unspecified viral hepatitis C without hepatic coma; E83.52 Hypercalcemia; Z11.4 Encounter for screening for human immunodeficiency virus [HIV] | CPT/HCPCS: 82103; 82105; 82306; 82607; 82728; 82746; 83550; 84443; 84466; 85651; 86038; 86140; 86592; 87522; 87806; 87902 ==